=== PATIENT | female | born 1995 | race Caucasian/White ===

== ENCOUNTER 2023-08-15 17:11 | Outpatient (CLI) | payer OTHER ==
[~2023-08-15] VITALS: Ht 157.5 cm; Wt 104.3 kg
[~2023-08-15 17:11] MED LIST: EUTHYROX100 MCG PO; GLUCOPHAGE500 MG/TAB PO; PRENATAL TABLET PO; VITAMIN D 400400 IU PO
--- NOTE | 2023-08-15 17:26 | NUR ---
1715 PATIENT HERE FOR 2ND BETAMETHASONE SHOT PER DR ORDER. NST ALSO. FHT 125 BABY ACTIVE.
--- NOTE | 2023-08-15 17:41 | NUR ---
174 Dr. españa called and notified of patient here. orders given to due a momstress test and 2nd Betamethasone 12mg Im shot and then dismiss to home. 174 Betamethasone 12mg im given in right buttocks.
[2023-08-15] MEDS ORDERED: Betamethasone Acetate/Na Phos 6 MG/ML 5 ML MDV IM ONE (17:45)
== END 2023-08-15 17:53 | disposition home or self-care (01) ==
LOC: LDRO 17:11
DX: O26.893 Other specified pregnancy related conditions, third trimester (principal); E75.5 Other lipid storage disorders; Z3A.33 33 weeks gestation of pregnancy
CPT/HCPCS: J0702